=== PATIENT | female | born 1980 | race Caucasian/White ===

== ENCOUNTER → 2018-05-28 16:16 | Outpatient (CLI) | payer OTHER, SELFPAY ==
[2018-06-01 08:32] LABS: HPV Reflexed? NOT INDICATED
== END ==
PROVIDERS: Visit Provider Obstetrics & Gynecology
DX: Z12.4 Encounter for screening for malignant neoplasm of cervix (principal)
CPT/HCPCS: 88175; G0145

== ENCOUNTER → 2019-06-19 14:04 | Outpatient (CLI) | payer OTHER, SELFPAY ==
[2015-05-27 03:22] VITALS: BMI 27.0
[2019-06-19 16:41] LABS: Absolute Lymphocyte Count 2.11 X10^3/uL (0.83-4.51); Absolute Neutrophil Count 3.4 X10^3/uL (2.0-7.7); Basophil# 0.06 X10^3/uL; Basophil% 0.9 % (0-1); Eosinophil# 0.17 X10^3/uL; Eosinophils% 2.6 % (0-5); Hematocrit 41.5 % (37-47); Hemoglobin 13.6 g/dL (12.0-15.0); Lymphocyte # 2.11 X10^3/ul (4.0); Lymphocyte % 32.9 % (19-41); Mean Corp Hgb Conc 32.8 g/dL (32-36); Mean Corpuscular Hgb 30.8 pg (27.0-32.0); Mean Corpuscular Volume 94.1 fL (81-99); Mean Platelet Vol. 10.3 fl (6.2-12.0); Monocyte# 0.62 X10^3/uL; Monocyte% 9.7 % (0-10); NRBC Flagged by Analyzer 0 % (0-5); Neutrophil # 3.44 X10^3/uL (2.7-7.7); Neutrophil % 53.6 % (47-70); Platelet Count 241 K/mm3 (150-450); RBC Distribution Width CV 12.3 % (11.6-14.6); RBC Distribution Width SD 42.6 fl (35.1-43.9); Red Blood Count 4.41 M/mm3 (4.2-5.4); White Blood Count 6.4 K/mm3 (4.4-11.0)
[2019-06-21 20:52] LABS: EBV Acute VCA IgM < 36.0 U/mL (0.0-35.9); EBV Early Antigen IgG <9.0 U/mL (0.0-8.9); EBV Nuclear Antigen IgG < 18.0 U/mL (0.0-17.9); EBV-VCA IgG < 18.0 U/mL (0.0-17.9)
== END ==
PROVIDERS: Referring Provider Internal Medicine; Visit Provider Internal Medicine
DX: R53.83 Other fatigue (principal)
CPT/HCPCS: 85025; 86663; 86664; 86665

== ENCOUNTER → 2019-07-17 16:09 | Outpatient (CLI) | payer OTHER, SELFPAY ==
[2015-05-27 03:22] VITALS: BMI 27.0
[2019-07-22 16:08] LABS: Age Gdln ACOG Testing 30-65 (.)
[2019-07-22 17:25] LABS: HPV APTIMA, High Risk Negative (Negative); HPV Reflexed? YES, CHARGE PATIENT
== END ==
PROVIDERS: Visit Provider Obstetrics & Gynecology
DX: Z12.4 Encounter for screening for malignant neoplasm of cervix (principal)
CPT/HCPCS: 87624; 88175; G0145

== ENCOUNTER → 2019-08-09 07:30 | Outpatient (CLI) | payer OTHER, SELFPAY ==
--- NOTE | 2019-08-09 07:34 | BI_ITS ---
MAMMOGRAPHY - BILATERAL SCREENING 3-D TOMOSYNTHESIS REASON FOR EXAM: Female, 38 years old. Routine annual screening mammogram. PERTINENT HISTORY: Implants in 2015. TECHNIQUE: 2-D mammograms and 3-D Tomosynthesis of the breast (s) were performed. Implant displacement views were also obtained. CAD was performed. COMPARISON: Baseline study. FINDINGS: The breast composition is heterogeneously dense that can obscure small breast masses. Subpectoral silicone implants bilaterally with no complications. Scattered benign calcifications are seen. No dense spiculated masses or suspicious microcalcifications are identified. No architectural distortion is identified. There is no skin thickening or retraction. Normal-appearing axillary lymph nodes. BI/SCREEN MAMM (CAD) W/MP BILAT IMPRESSION: No mammographic signs of malignancy. Routine yearly mammograms recommended. ASSESSMENT CATEGORY: BIRADS Category 2: Benign. A letter regarding these results will be sent to the patient by the facility within 30 days. FOLLOW UP RECOMMENDATION: Yearly follow up mammogram recommended. (A) Approximately 10% of breast cancers are not detected by mammography. A normal mammogram should not delay biopsy of a clinically suspicious abnormality. Electronically Signed: Jose Alejandro Peralta MD at 11:35 EST , Service support ,
== END ==
PROVIDERS: Family Provider Internal Medicine; PCP Internal Medicine; Referring Provider Obstetrics & Gynecology; Visit Provider Obstetrics & Gynecology
DX: Z12.31 Encounter for screening mammogram for malignant neoplasm of breast (principal); Z98.82 Breast implant status
CPT/HCPCS: 77063; 77067

== ENCOUNTER → 2020-07-24 14:35 | Outpatient (CLI) | payer OTHER, SELFPAY ==
[2015-05-27 03:22] VITALS: BMI 27.0
[2020-07-28 08:08] LABS: Chlamydia By Nucleic Acid AMP Negative (Negative)
[2020-07-28 11:12] LABS: Gonococcus By Nucleic Acid AMP Negative (Negative)
[2020-07-29 15:18] LABS: HPV APTIMA, High Risk Negative (Negative)
== END ==
PROVIDERS: PCP Internal Medicine; Visit Provider Obstetrics & Gynecology
DX: Z11.3 Encounter for screening for infections with a predominantly sexual mode of transmission (principal)
CPT/HCPCS: 87491; 87591; 87624; 88175; G0145

== ENCOUNTER 2021-11-05 12:35 | Outpatient (CLI) | payer OTHER, SELFPAY ==
[2021-11-05 12:44] LABS: Absolute Lymphocyte Count 2.17 X10^3/uL (0.83-4.51); Absolute Neutrophil Count 2.3 X10^3/uL (2.0-7.7); Basophil# 0.06 X10^3/uL; Basophil% 1.1 % (0-1); Eosinophil# 0.08 X10^3/uL; Eosinophils% 1.5 % (0-5); Hematocrit 41.7 % (37-47); Lymphocyte # 2.17 X10^3/ul (0.83-4.51); Lymphocyte % 41.3 % (19-41); Mean Corp Hgb Conc 33.6 g/dL (32-36); Mean Corpuscular Hgb 30.6 pg (27.0-32.0); Mean Corpuscular Volume 91.2 fL (81-99); Mean Platelet Vol. 10.2 fl (6.2-12.0); Monocyte# 0.64 X10^3/uL; Monocyte% 12.2 % (0-10); NRBC Flagged by Analyzer 0 % (0-5); Neutrophil # 2.29 X10^3/uL (2.7-7.7); Neutrophil % 43.5 % (47-70); Platelet Count 246 K/mm3 (150-450); RBC Distribution Width CV 12.1 % (11.6-14.6); RBC Distribution Width SD 40.5 fl (35.1-43.9); Red Blood Count 4.57 M/mm3 (4.2-5.4); White Blood Count 5.3 K/mm3 (4.4-11.0)
[2021-11-05 12:54] LABS: Erythrocyte Sedimentation Rate 1 mm/hr (0-30)
[2021-11-05 12:59] LABS: ALB/GLOB Ratio 1.5 RATIO (0.9-2.4); AST(SGOT) 10 U/L (15-37); Alanine Aminotransfer ALT/SGPT 17 U/L (13-56); Albumin, Serum 4.3 g/dL (3.2-5.0); Alkaline Phosphatase 44 U/L (45-117); Anion Gap 4 (5-15); BUN 13 mg/dL (7-18); BUN/Creat Ratio 16.8 RATIO (10-20); CRP < 2.90 mg/L (0.0-3.0); Calcium,Total 8.8 mg/dL (8.5-10.1); Chloride 108 mmol/L (98-107); Creatinine, Serum 0.77 mg/dL (0.55-1.02); EST Glomerular Filtration Rate 88 mL/min (>60); Est Glom Filt Rate - Afr Amer 107 mL/min (>60); Globulin 2.8 g/dL (2.2-4.2); Glucose 84 mg/dL (74-106); Potassium 4.1 mmol/L (3.5-5.1); Protein, Total 7.1 g/dL (6.4-8.2); Sodium Level 138 mmol/L (136-145)
== END 2021-11-05 23:59 | disposition home or self-care (01) ==
LOC: LABSPEC 12:35
PROVIDERS: PCP Internal Medicine; Visit Provider Internal Medicine
DX: H53.8 Other visual disturbances (principal)
CPT/HCPCS: 80053; 85025; 85652; 86140

== ENCOUNTER → 2023-04-19 | Outpatient (CLI) | payer OTHER, SELFPAY ==
--- NOTE | 2023-04-19 10:01 | BI_ITS ---
MAMMOGRAPHY - BILATERAL SCREENING REASON FOR EXAM: Female, 42 years old. Routine annual screening examination. PERTINENT HISTORY: Non-contributory. Bilateral breast implants. TECHNIQUE: Digital bilateral breast mp (3D mammographic acquisition) in the CC and MLO projections. 2-D mediolateral oblique (MLO) and craniocaudad (CC) views of both breasts were obtained. CAD: Full Field Digital Mammography with Computer Added Detection was performed. COMPARISON: Comparison is made with prior study August 09, 2019. FINDINGS: Breast Composition: The breasts are extremely dense, which lowers the sensitivity of mammography. There are no dominant masses or suspicious calcifications. Stable appearance of the bilateral breast implants. No other significant abnormalities are identified. There has been no significant change since the prior study. BI/SCRN MAMM (CAD)W/MP BILAT IMPRESSION: Stable bilateral screening mammogram. Yearly follow-up mammogram recommended. (A) ASSESSMENT CATEGORY: BIRADS Category 2: Benign. A letter regarding these results will be sent to the patient by the facility within 30 days. Approximately 10% of breast cancers are not detected by mammography. A normal mammogram should not delay biopsy of a clinically suspicious abnormality. [id number] Electronically Signed: Rey Lozoya MD at 10:49 EDT ,
== END | disposition home or self-care (01) ==
LOC: OPBI 09:59
PROVIDERS: PCP Internal Medicine; Referring Provider Student in an Organized Health Care Education/Training Program; Visit Provider Student in an Organized Health Care Education/Training Program
DX: Z12.31 Encounter for screening mammogram for malignant neoplasm of breast (principal)
CPT/HCPCS: 77063; 77067

== ENCOUNTER → 2023-08-09 | Outpatient (CLI) | payer OTHER, SELFPAY ==
--- NOTE | 2023-08-09 11:15 | US_ITS ---
STUDY: ULTRASOUND BREAST - LEFT REASON FOR EXAM: Female, 42 years old. Multiple palpable areas in the lateral aspect of the breast. Breast implants. TECHNIQUE: Axial and longitudinal images of the LEFT breast were performed with a high resolution ultrasound transducer. # OF IMAGES: [id number] COMPARISON: Bilateral mammograms dated April 19, 2023 and August 09, 2019 FINDINGS: LEFT Breast: Breast implants showing no complicating features. Dense fibroglandular tissue 4 mm x 5 mm x 3 mm anechoic ovoid cyst at the 12:00 position. 1.2 cm x 8 mm x 3 mm 4 cm from the nipple circumscribed anechoic cystic lesion 4 cm from the nipple. No increased blood flow. 5 mm x 5 mm x 3 mm hypoechoic lobular septated solid lesion at the 3:00 position 2 cm from the nipple which the patient reports is palpable. No aggressive features associated with this lesion. However, a six-month follow-up left breast ultrasound with particular attention to this lesion at the 3:00 position is recommended. Ovoid anechoic mass measuring 7 mm x 3 mm x 5 mm at the 5:00 position 6 cm from the nipple. US/Breast Limited Unilateral IMPRESSION: 3 cystic masses and one hypoechoic solid mass as described above. The patient should return for a six-month follow-up left breast ultrasound to further evaluate all of these lesions, especially at the 3:00 lesion which the patient reports is palpable. ASSESSMENT CATEGORY: BIRADS Category 3: Probably Benign - Short-Interval Follow-up Suggested. A letter regarding these results will be sent to the patient by the facility within 30 days. Electronically Signed: Jose Alejandro Peralta MD at 15:13 EST ,
== END | disposition home or self-care (01) ==
LOC: OPBI 11:06
PROVIDERS: PCP Internal Medicine; Referring Provider Internal Medicine; Visit Provider Internal Medicine
DX: N63.21 Unspecified lump in the left breast, upper outer quadrant (principal)
CPT/HCPCS: 76642

== ENCOUNTER → 2024-10-08 | Outpatient (CLI) | payer OTHER, SELFPAY ==
--- NOTE | 2024-10-08 09:44 | BI_ITS ---
PROCEDURE: DIAG MAMM W/CAD, BILAT; BREAST LIMITED UNILATERAL; BILAT BRST MP STAND ALONE REASON FOR EXAM: 43-year-old female presents for follow-up examination of the left breast for masses visualized on examination of 08/09/2023. No family history of breast cancer. TECHNIQUE: Bilateral diagnostic digital breast tomosynthesis with 2D and 3D images. Computer aided detection. Also, targeted left breast ultrasound was performed. COMPARISON: 08/09/2023, 04/19/2023 FINDINGS: MAMMOGRAM: The breasts are extremely dense which lowers the sensitivity of mammography. The previously visualized left breast masses are not seen mammographically due to the dense breast tissues. Otherwise, there are no suspicious findings seen in the right breast. There are bilateral retropectoral silicone breast implants. ULTRASOUND:Ultrasound performed of the left breast demonstrates a complicated cyst at 3 o'clock 2 cm from the nipple measuring 0.7 x 0.4 x 0.3 cm, previously 0.5 x 0.4 x 0.3 cm. Also, there is another complicated cyst at 5 o'clock 7 cm from the nipple measuring 0.7 x 0.4 x 0.2 cm, previously 0.7 x 0.5 x 0.3 cm. The other previously visualized cystic areas at 12 o'clock 4 cm from the nipple and 1 o'clock 4 cm from the nipple are no longer visualized on this examination. BI/Bilat Brst Mp Stand Alone IMPRESSION: The complicated cysts in the left breast at 3 o'clock and 5 o'clock have not si gnificantly changed when compared to examination of 08/09/2023 and are considered benign. There are no suspicious findings in either breast. BI-RADS 2: BENIGN. RECOMMEND ANNUAL MAMMOGRAPHIC SCREENING. Follow-up code: Routine Follow-up Reading Location: [id number]
--- NOTE | 2024-10-08 09:44 | BI_ITS ---
PROCEDURE: DIAG MAMM W/CAD, BILAT; BREAST LIMITED UNILATERAL; BILAT BRST MP STAND ALONE REASON FOR EXAM: 43-year-old female presents for follow-up examination of the left breast for masses visualized on examination of 08/09/2023. No family history of breast cancer. TECHNIQUE: Bilateral diagnostic digital breast tomosynthesis with 2D and 3D images. Computer aided detection. Also, targeted left breast ultrasound was performed. COMPARISON: 08/09/2023, 04/19/2023 FINDINGS: MAMMOGRAM: The breasts are extremely dense which lowers the sensitivity of mammography. The previously visualized left breast masses are not seen mammographically due to the dense breast tissues. Otherwise, there are no suspicious findings seen in the right breast. There are bilateral retropectoral silicone breast implants. ULTRASOUND:Ultrasound performed of the left breast demonstrates a complicated cyst at 3 o'clock 2 cm from the nipple measuring 0.7 x 0.4 x 0.3 cm, previously 0.5 x 0.4 x 0.3 cm. Also, there is another complicated cyst at 5 o'clock 7 cm from the nipple measuring 0.7 x 0.4 x 0.2 cm, previously 0.7 x 0.5 x 0.3 cm. The other previously visualized cystic areas at 12 o'clock 4 cm from the nipple and 1 o'clock 4 cm from the nipple are no longer visualized on this examination. BI/DIAG MAMM W/CAD, BILAT IMPRESSION: The complicated cysts in the left breast at 3 o'clock and 5 o'clock have not si gnificantly changed when compared to examination of 08/09/2023 and are considered benign. There are no suspicious findings in either breast. BI-RADS 2: BENIGN. RECOMMEND ANNUAL MAMMOGRAPHIC SCREENING. Follow-up code: Routine Follow-up Reading Location: [id number]
== END | disposition home or self-care (01) ==
PROVIDERS: PCP Internal Medicine; Referring Provider Internal Medicine; Visit Provider Internal Medicine
DX: N63.21 Unspecified lump in the left breast, upper outer quadrant (principal)
CPT/HCPCS: 76642; 77062; 77066; G0279